=== PATIENT | female | born 1950 | race Caucasian/White ===

== ENCOUNTER 2024-07-05 10:11 | Inpatient (IN) | payer MEDICARE, OTHER ==
[~2024-07-05] VITALS: Ht 167.6 cm; Wt 50.5 kg
[2024-07-05 10:39] LABS: Basophils # (auto) 0.1 10 ^3/uL (0-0.2); Basophils % (auto) 0.7 % (0.0-2.0); Eosinophils # (auto) 0 10 ^3/uL (0-0.8); Eosinophils % (auto) 0.2 % (0.0-7.0); Hematocrit 39.1 % (36.0-46.0); Hemoglobin 13.3 g/dL (12.2-16.2); Lymphocytes # (auto) 0.8 10 ^3/uL (0.4-5.4); Lymphocytes % (auto) 7.8 % (10.0-50.0); Mean Corpuscular Hemoglobin 32.4 pg (28.0-32.0); Mean Corpuscular Hgb Conc. 34.1 g/dL (32.0-36.0); Mean Corpuscular Volume 95.1 fL (80.0-100.0); Monocytes # (auto) 1.2 10 ^3/uL (0-1.3); Monocytes % (auto) 11.6 % (0.0-12.0); Neutrophils # (auto) 8.1 10 ^3/uL (1.6-8.6); Neutrophils % (auto) 79.7 % (37.0-80.0); Nucleated Red Blood Cells % 0.1 %; Platelet Count (auto) 482 10^3/uL (140-450); Red Blood Cells 4.11 10^6/uL (4.0-5.20); Red Cell Distribution Width 13.4 % (11.8-14.3); White Blood Cell 10.1 10^3/uL (4.4-10.8)
--- NOTE | 2024-07-05 12:11 | ED.PDOC ---
History of Present Illness HPI Comments 74 y/o underweight F presents with granddaughter for c/o constipation, urine retention, and abdominal distension, today. Patient is a poor historian and reports progressively worsening symptoms for the past 5x days following initial, unprovoked onset. Patient endorses on still passing some gas flatulence. She comments, additionally, on remote event with same symptoms 12x years ago following a colonoscopy procedure then. Patient otherwise reports no further relevant or pertinent information, such as recent sick contact or any significant GI symptoms, aside from being without a medical provider for over 3x years, now. Patient denies any abdominal pain, nausea, vomiting, fever, chills, or other associated symtpoms or modifiers a this time. Chief Complaint: General Weakness Time Seen by MD: 10:10 Reviewed Notes: Nurses Notes, Medications, Allergies Allergies: Coded Allergies: NO KNOWN ALLERGIES (Unverified , 07/05/24) Information Source: Patient, Relative (GrandChild) Mode of Arrival: Ambulatory Severity: Moderate Timing: Days Duration: Since onset Prehospital treatment: None Past Medical History PAST MEDICAL HISTORY: Denies Surgical History: Denies all surgeries CLOTHING MAN History: Denies all CLOTHING MAN Hx Family History Family History: Unknown Social History Smoker: Non-Smoker Alcohol: Denies ETOH Use Drugs: Denies Drug Use Lives In: Home, Assisted Care All Other Systems: Reviewed and Negative (Comprehensive systems review obtained and negative except for what is stated in the HPI.) Physical Exam General Appearance: Moderate Distress HEENT: Normal ENT Inspection, Pharynx Normal, TMs Normal Neck: Full Range of Motion, Non-Tender, Normal, Normal Inspection Respiratory: Chest Non-Tender, Lungs Clear, No Accessory Muscle Use, No Respiratory Distress, Normal Breath Sounds Cardiovascular: No Edema, No JVD, No Murmur, No Gallop, Normal Peripheral Pulses, Tachycardia Breast Exam: Deferred Gastrointestinal: Distended Genitalia: Deferred Pelvic: Deferred Rectal: Deferred Extremities: Normal range of motion, No pedal edema Musculoskeletal : Apperance: Normal Neurologic: Alert, No Motor Deficits, No Sensory Deficits Cerebellar Function: NOT DONE Reflexes: NOT DONE Skin: Dry, Normal Color, Warm Peripheral Pulses: 3+ Radial (R), 3+ Radial (L) Lymphatic: No Adenopathy Was a procedure done? Was a procedure done?: No EKG EKG : Pulse Rate (adult): 103 [place]: Normal Cardiac Rhythm: ST Block: None Hypertrophy: None ST: Normal Differential Dx Considerations may include: constipation, UTI, viral syndrome, among others X-Ray, Labs, Meds, VS Vital Signs Date Time Temp Pulse Resp B/P (MAP) Pulse Ox O2 Delivery O2 Flow Rate FiO2 07/05/24 14:26 100 97 96 Room Air* 0 21 07/05/24 14:00 115 17 147/90 (109) 99 07/05/24 13:45 98.5 113 19 159/96 (117) 99 98.5 07/05/24 13:30 111 147/90 07/05/24 13:24 105 18 163/109 (127) 98 07/05/24 12:12 103 07/05/24 10:24 103 07/05/24 10:22 98.5 110 20 165/91 (115) 98 98.5 Lab Test 07/05/24 10:27 07/05/24 10:20 Range/Units White Blood Count 10.1 4.4-10.8 10^3/uL Red Blood Count 4.11 4.0-5.20 10^6/uL Hemoglobin 13.3 12.2-16.2 g/dL Hematocrit 39.1 36.0-46.0 % Mean Corpuscular Volume 95.1 80.0-100.0 fL Mean Corpuscular Hemoglobin 32.4 H 28.0-32.0 pg Mean Corpuscular Hemoglobin Concent 34.1 32.0-36.0 g/dL Red Cell Distribution Width 13.4 11.8-14.3 % Platelet Count 482 H 140-450 10^3/uL Mean Platelet Volume 6.8 L 6.9-10.8 fL Neutrophils (%) (Auto) 79.7 37.0-80.0 % Lymphocytes (%) (Auto) 7.8 L 10.0-50.0 % Monocytes (%) (Auto) 11.6 0.0-12.0 % Eosinophils (%) (Auto) 0.2 0.0-7.0 % Basophils (%) (Auto) 0.7 0.0-2.0 % Neutrophils # (Auto) 8.1 1.6-8.6 10 ^3/uL Lymphocytes # (Auto) 0.8 0.4-5.4 10 ^3/uL Monocytes # (Auto) 1.2 0-1.3 10 ^3/uL Eosinophils # (Auto) 0 0-0.8 10 ^3/uL Basophils # (Auto) 0.1 0-0.2 10 ^3/uL Nucleated Red Blood Cells 0.1 % Urine Color Yellow Yellow Urine Clarity Turbid H Clear Urine pH 5.5 5.0-9.0 Urine Specific [place] 1.021 1.001-1.035 Urine Protein Trace H Negative Urine Ketones Negative Negative Urine Blood 1+ H Negative /uL Urine Nitrite Negative Negative Urine Bilirubin Negative Negative Urine Urobilinogen Normal Negative mg/dL Urine Leukocyte Esterase Trace Negative /uL Urine RBC 11 0 - 4 /hpf Urine Microscopic WBC 12 H 0-5 /HPF Urine Squamous Epithelial Cells Few <5 /hpf Urine Bacteria None seen None Seen /hpf Urine Mucus Few None Seen Urine Glucose Normal Normal mg/dL POC Glucose 151 H 70-106 mg/dl Current Medications Medications (Trade) Dose Ordered Sig/Matt Route Start Time Stop Time Status Last Admin Sodium Chloride 1,000 ml @ 1,000 mls/hr Q1H ONCE IV 07/05/24 12:30 07/05/24 13:29 DC 07/05/24 12:30 [place] [id number] Ph: [phone] DIAGNOSTIC IMAGING Diagnostic Imaging Report : [id number] Signed PATIENT: TAYLER SAMAYOA ACCT: [id number] UNIT: [id number] : 1950 LOC: ER ROOM / BED: / AGE / SEX: 74 / F ADM STATUS: REG ER SERVICE 1223 ORDERING PHYSICIAN: SALIMA ORTIZ MD PROCEDURE(s): ABPL - CT AB PEL WO CON-NO ORAL OR IV REASON: herniavssbo ORDER NUMBER(s): [id number], ACCESSION NUMBER(s): [id number] CT ABDOMEN AND PELVIS WITHOUT CONTRAST CLINICAL HISTORY: herniavssbo TECHNIQUE: Multiple contiguous axial images of the abdomen and pelvis without intravenous contrast. The images were reformatted degenerate coronal and s agittal reconstructions. All CT scans at this medical facility are performed using dose modulation techniques as appropriate to a performed exam including the following:Automated exposure control was utilized; adjustment of the MA and/or KV according to p atient size; and use of iterative reconstruction technique. Radiation Dose Information: CT Dose: CTDI volume is 5.5 mGy. Dose-length product is 264.87 mGy*cm Comparison: None FINDINGS: Evaluation of the abdomen and pelvis is limited without intravenous contrast. The liver, gallbladder, pancreas, kidneys, adrenal glands, and spleen appear within normal limits. There are enlarged matted retroperitoneal lymph nodes encasing the abdominal aorta and IVC. There is no obvious free fluid or free air. There is a large cystic structure in the anterior abdomen and upper pelvis measuring approximately 11.4 x 16.1 x 20.2 cm. There is a midline ventral hernia containing intra-abdominal fat and fluid. The stomach grossly appears unremarkable. There are no dilated small or large bowel loops. The appendix is not adequately seen in the right lower quadrant abdomen. There are no obvious secondary findings of acute appendicitis. The abdominal aorta and IVC appear within normal limits. The uterus is enlarged. Bladder is not adequately seen and is likely compressed.. There is small amount of free fluid in the pelvis. Lung bases are clear. There is no acute osseous abnormality. IMPRESSION: 1. There is a large cystic structure in the anterior abdomen and upper pelvis measuring 11.4 x 16.1 x 20.2 cm. This probably represents a large ovarian cystic lesion. Surgical consultation is recommended. 2. The uterus is also enlarged. May relate to uterine mass or fibroids. 3. There are enlarged matted retroperitoneal lymph nodes encasing the abdominal aorta and IVC. HS:Y ATED BY: BALDO YAÑEZ MD DICTATED DATE/TIME: 07/05/24 1300 SIGNED BY: BALDO YAÑEZ MD SIGNED DATE/TIME: 07/05/24 1300 CC: Patient alert. Complaining of abdominal distention. Has not had a bowel movement. Vitals stable. Blood pressure elevated. She has not seen a physician in many years. WBC within normal limits. Hemoglobin within normal limits. Blood sugar elevated. Establish intravenous access. Was given pain medication. Was given Zofran. Reviewed her history. Explained to the patient. Continue cardiac monitoring. EKG reviewed does not show any acute changes. Time of 1ST Reevaluation: 10:40 Reevaluation 1ST: Unchanged Patient Education/Counseling: Diagnosis, Treatment Family Education/Counseling: Diagnosis, Treatment Additional Information Previous medical encounters reviewed: n/a The following tests were ordered, and results were reviewed by me: EKG, UA, CBC Additional Information was gathered from interviewing the following independent historians: granddaughter I reviewed and agreed with the following test results read by other providers: n/a I discussed treatment and results with medical personnel and: Patient, ted hter Departure 1 Departure Time of Disposition: 12:22 Impression: Primary Impression: Uncontrolled diabetes mellitus Qualified Codes: E13.65 - Other specified diabetes mellitus with hyperglycemia Additional Impression: Acute abdominal pain Disposition: ADMITTED INPATIENT Admit to: Med Surg Condition: Guarded Critical Care Note Critical Care Time?: No Stability Stability form required: No Heart Score Heart Score: Heart Score Response (Comments) Value History Slightly Suspicious 0 EKG Normal 0 Age >65 2 Risk Factors >3 or Hx ASHD 2 Troponin Normal limit 0 Total 4 I personally scribed for SALIMA ORTIZ MD ([email or web address]) on 07/05/24 at 12:11. Electronically submitted by Bobby Veronica ([email or web address]). I personally scribed for SALIMA ORTIZ MD ([email or web address]) on 07/05/24 at 12:12. Electronically submitted by Bobby Veronica ([email or web address]). I personally scribed for SAILMA ORTIZ MD ([email or web address]) on 07/05/24 at 15:10. E lectronically submitted by Bobby Veronica ([email or web address]). SALIMA ORTIZ MD Jul 05, 2024 12:11
[2024-07-05] MEDS: SODIUM CHLORIDE 0.9% 1,000 ML IV ONE (12:30)
--- NOTE | 2024-07-05 13:03 | DVH ---
CT ABDOMEN AND PELVIS WITHOUT CONTRAST CLINICAL HISTORY: herniavssbo TECHNIQUE: Multiple contiguous axial images of the abdomen and pelvis without intravenous contrast. T he images were reformatted degenerate coronal and sagittal reconstructions. All CT scans at this medical facility are performed using dose modulation techniques as appropriate t o a performed exam including the following:Automated exposure control was utilized; adjustment of the MA and/or KV according to patient size; and use of iterative reconstruction technique. Radiation Dose Information: CT Dose: CTDI volume is 5.5 mGy. Dose-length product is 264.87 mGy*cm Comparison: None FINDINGS: Evaluation of the abdomen and pelvis is limited without intravenous contrast. The liver, gallbladder, pancreas, kidneys, adrenal glands, and spleen appear within normal limits. There are enlarged matted retroperitoneal lymph nodes encasing the abdominal aorta and IVC. There is no obvious free fluid or free air. There is a large cystic structure in the anterior abdomen and uppe r pelvis measuring approximately 11.4 x 16.1 x 20.2 cm. There is a midline ventral hernia containing intra-abdominal fat and fluid. The stomach grossly appears unremarkable. There are no dilated small or large bowel loops. The appen alan is not adequately seen in the right lower quadrant abdomen. There are no obvious secondary findin gs of acute appendicitis. The abdominal aorta and IVC appear within normal limits. The uterus is enlarged. Bladder is not adequately seen and is likely compressed.. There is small madhu unt of free fluid in the pelvis. Lung bases are clear. There is no acute osseous abnormality. IMPRESSION: 1. There is a large cystic structure in the anterior abdomen and upper pelvis measuring 11.4 x 16.1 x 20.2 cm. This probably represents a large ovarian cystic lesion. Surgical consultation is recommend ed. 2. The uterus is also enlarged. May relate to uterine mass or fibroids. 3. There are enlarged matted retroperitoneal lymph nodes encasing the abdominal aorta and IVC. HS:Y
[2024-07-05] MEDS: LABETALOL HCL 20 MG/4 ML VL IV ONE (13:30)
[2024-07-05 14:19] LABS: Urine Bacteria None Seen /hpf (None Seen)
[2024-07-05 14:24] LABS: Urine Blood 1+ /uL (Negative); Urine Clarity Turbid (Clear); Urine Color Yellow (Yellow); Urine Mucus FEW (None Seen); Urine Protein, UAD TRACE (Negative); Urine Specific Gravity 1.021 (1.001-1.035); Urine Squamous Epithelial Cell FEW /hpf (<5); Urine Urobilinogen Normal (Negative); Urine WBC 12 /HPF (0-5); Urine pH 5.5 (5.0-9.0)
[2024-07-05 14:26] VITALS: PULSE 100; RESP 97; O2SAT 96
[2024-07-05] MEDS ORDERED: ACETAMINOPHEN 500 MG TAB or CAP PO PRN (14:45)
[2024-07-05] MEDS ORDERED: NITROGLYCERIN 0.4 MG SL TAB SL PRN (14:45)
[2024-07-05 14:47] VITALS: PULSE 94; RESP 16; O2SAT 98
--- NOTE | 2024-07-05 14:58 | DVHHP2 ---
History of Present Illness Reason for Visit: Abdominal distention History of Present Illness Patient was a 74-year-old female presenting to the emergency room with constipation in abdominal distention. Patient denies having any medical history. She reports that her abdominal distention has been getting worse with the past several days. The patient also reports having constipation. She denies having any loss of weight. Patient has CT scan of the abdomen and pelvis which shows a large cystic lesion anterior abdomen. Patient was Leiva catheter placed with some resolution of the patient's abdominal distention with 1600 mL removed. Imaging and radiology findings were discussed with the patient and granddaughter who was bedside. They were informed that given this type of mass, it was highly likely that the patient will need to be seen by specialist, gynecological oncologist, which was not available at this hospital or within the local hospitals. At this time she was requesting to be admitted to this hospital for further diagnostic testing. The current time she states that she has not seen a doctor three years, and is currently on no prescribed medications. Past Surgical History: None Family History: None Smoke: No ALCOHOL: none Drugs: None Lives: with Family Review of Systems Constitutional: No: Fever, Chills, Sweats, Weakness, Malaise, Other Eyes: No: Pain, Vision change, Conjunctivae inflammation, Eyelid inflammation, Other, Redness ENT: No: Ear pain, Ear discharge, Nose pain, Nose discharge, Nose congestion, Mouth pain, Mouth swelling, Throat pain, Throat swelling, Other Respiratory: No: Cough, Dry, Shortness of breath, SOB with excertion, Wheezing, Hemoptysis, Pleuritic Pain, Sputum, Wheezing, Other Cardiovascular: No: Chest Pain, Palpitations, Orthopnea, Paroxysmal Noc. Dyspnea, Edema, Lt Headedness, Other Gastrointestinal: Abdominal Pain, Constipation Genitourinary: No Dysuria, No Frequency, No Incontinence, No Hematuria, No Retention, No Other Musculoskeletal: No: other, neck pain, shoulder pain, arm pain, back pain, hand pain, leg pain, foot pain Skin: No: Rash, Lesions, Jaundice, Bruising, Other Neurological: No: Weakness, Numbness, Incoordination, Change in speech, Confusion, Seizures, Other Allergies: Coded Allergies: NO KNOWN ALLERGIES (Unverified , 07/05/24) Medications Current Medications Medications Dose Ordered Sig/Matt Route Start Time Stop Time Status Last Admin Dose Admin Nitroglycerin 0.4 mg Q5MINP PRN SL 07/05/24 14:45 UNV Morphine Sulfate 2 mg Q30M PRN IV 07/05/24 14:45 UNV Morphine Sulfate 1 mg Q4HPRN PRN IV 07/05/24 14:45 UNV Acetaminophen/ Hydrocodone Bitart 1 tab Q6HPRN PRN PO 07/05/24 14:45 UNV Acetaminophen 500 mg Q8HP PRN PO 07/05/24 14:45 UNV Ondansetron HCl 4 mg Q6HP PRN IV 07/05/24 14:45 UNV Docusate Sodium 100 mg BID PO 07/05/24 22:00 UNV Lactated Ringer's 1,000 ml @ 75 mls/hr [id number] IV 07/05/24 14:45 UNV Exam Vital Signs Vital Signs Date Time Temp Pulse Resp B/P (MAP) Pulse Ox O2 Delivery O2 Flow Rate FiO2 07/05/24 14:26 100 97 96 Room Air* 0 21 07/05/24 14:00 147/90 (109) 07/05/24 13:45 98.5 98.5 General Appearance: Alert, Oriented X3, Cooperative, mild distress HEENT: Atraumatic, PERRLA Respiratory: Clear to auscultation, Normal air movement Cardiovascular: Normal S1, Normal S2, Other (Sinus tachycardia) Abdominal: Normal bowel sounds, Soft, No tenderness, No hepatospenomegaly Extremities: No clubbing, No cyanosis Neuro: Normal gait, Normal speech Psych/Mental Status: Mental status NL, Mood NL Labs/Xrays Labs Test 07/05/24 10:27 07/05/24 10:20 Range/Units White Blood Count 10.1 4.4-10.8 10^3/uL Red Blood Count 4.11 4.0-5.20 10^6/uL Hemoglobin 13.3 12.2-16.2 g/dL Hematocrit 39.1 36.0-46.0 % Mean Corpuscular Volume 95.1 80.0-100.0 fL Mean Corpuscular Hemoglobin 32.4 H 28.0-32.0 pg Mean Corpuscular Hemoglobin Concent 34.1 32.0-36.0 g/dL Red Cell Distribution Width 13.4 11.8-14.3 % Platelet Count 482 H 140-450 10^3/uL Mean Platelet Volume 6.8 L 6.9-10.8 fL Neutrophils (%) (Auto) 79.7 37.0-80.0 % Lymphocytes (%) (Auto) 7.8 L 10.0-50.0 % Monocytes (%) (Auto) 11.6 0.0-12.0 % Eosinophils (%) (Auto) 0.2 0.0-7.0 % Basophils (%) (Auto) 0.7 0.0-2.0 % Neutrophils # (Auto) 8.1 1.6-8.6 10 ^3/uL Lymphocytes # (Auto) 0.8 0.4-5.4 10 ^3/uL Monocytes # (Auto) 1.2 0-1.3 10 ^3/uL Eosinophils # (Auto) 0 0-0.8 10 ^3/uL Basophils # (Auto) 0.1 0-0.2 10 ^3/uL Nucleated Red Blood Cells 0.1 % Urine Color Yellow Yellow Urine Clarity Turbid H Clear Urine pH 5.5 5.0-9.0 Urine Specific [place] 1.021 1.001-1.035 Urine Protein Trace H Negative Urine Ketones Negative Negative Urine Blood 1+ H Negative /uL Urine Nitrite Negative Negative Urine Bilirubin Negative Negative Urine Urobilinogen Normal Negative mg/dL Urine Leukocyte Esterase Trace Negative /uL Urine RBC 11 0 - 4 /hpf Urine Microscopic WBC 12 H 0-5 /HPF Urine Squamous Epithelial Cells Few <5 /hpf Urine Bacteria None seen None Seen /hpf Urine Mucus Few None Seen Urine Glucose Normal Normal mg/dL POC Glucose 151 H 70-106 mg/dl Assessment/Plan Assessment/Plan Impression: -large abdominal mass -constipation -accelerated hypertension -urinary retention Plan: -admit to Medical/Surgical unit -MRI of the abdomen and pelvis -stool softeners -CEA, CA 125 -antihypertensives -continue with Leiva catheter -repeat labs in a.m. -pain management Total time spent with patient discussing and formulating plan of care: 35 minutes. This medical document was created using an electronic medical record system with [facility] system. Although this document has been carefully reviewed, there may still be some phonetic and typographical errors. These areas are purely typographical due to imperfections of the software programs, and do not reflect any compromise in the patient's medical care. Plan discussed with: Patient, Other (RN) My Orders Orders - ABRAM JORDAN NP Procedure Category Date Status Time Comprehensive LAB 07/05/24 Logged Metabolic Panel 14:45 Ca 125 (Serial) LAB 07/05/24 Logged 14:45 Carcinoembryonic LAB 07/05/24 Logged Antigen 14:45 * Director Of Market Analysis CONS 07/05/24 Transmitted Consult Admit ADMIT 07/05/24 Transmitted 14:45 Nitroglycerin PHA 07/05/24 Logged Sublingual (Ntrostat 14:45 Morphine Sulfate PHA 07/05/24 Logged Injection 14:45 Stat Ekg For Chest LONG 07/05/24 In Process Pain 14:45 Notify Md Of Changes LONG 07/05/24 In Process From Base 14:45 Shop Worker For LONG 07/05/24 In Process 24 Hours 14:45 Emergency Dysrhythmia LONG 07/05/24 In Process Protocol 14:45 Rhythm Strips Once LONG 07/05/24 In Process Every Shift 14:45 Oxygen By Nasal RT 07/05/24 Transmitted Cannula 14:45 Mri Abd & Plevis W/Wo MRI 07/05/24 Logged Cont 14:45 Lactate Dehydrogenase LAB 07/05/24 Logged 14:45 Thyroid Stimulating LAB 07/05/24 Logged Hormone 14:45 Morphine Sulfate PHA 07/05/24 Logged Injection 14:45 Hydrocodone-Acet PHA 07/05/24 Logged 5/325mg Tab ([place]ale 14:45 Acetaminophen Tab Or PHA 07/05/24 Logged Cap (Tylenol Tablet 14:45 Ondansetron Hcl PHA 07/05/24 Logged (Zofran) 14:45 Docusate Sodium PHA 07/05/24 Logged Capsule (Colace 22:00 Basic Metabolic Panel LAB 07/06/24 Verified 04:00 Complete Blood Count LAB 07/06/24 Verified 04:00 Lactated Ringer's PHA 07/05/24 Logged 14:45 Regular Diet DIET 07/05/24 Transmitted Dinner Metoprolol Tartrate PHA 07/05/24 Transmitted Tablet (Lopressor Ta 22:00 Date of Service: Jul 05, 2024 Billing Provider: ABRAM JORDAN NP Common Visit Codes: [id number] INP/OBS CARE (HIGH) ABRAM JORDAN NP Jul 05, 2024 14:58
[2024-07-05] MEDS: LACTATED RINGER'S 1,000 ML IV SCH (15:45)
[2024-07-05] MEDS: ONDANSETRON HCL 4 MG/2 ML VIAL IV PRN (16:01)
[2024-07-05] MEDS: MORPHINE SULFATE INJ 2 MG/ml SYRG IV PRN ×2 (16:02→21:52)
[2024-07-05 16:15] LABS: Alanine Aminotransferase 14 U/L (7-40); Albumin 4.2 g/dL (3.2-4.8); Alkaline Phosphatase 69 U/L (46-116); Anion Gap 9 (5-15); Bilirubin, Total 0.4 mg/dL (0.2-1.0); Calcium 9.9 mg/dL (8.7-10.4); Carbon Dioxide 27 mmol/L (20-31); Chloride 102 mmol/L (98-107); Potassium 3.7 mmol/L (3.5-5.1); Sodium 138 mmol/L (136-145); Total Protein 7.3 g/dL (5.7-8.2)
[2024-07-05 16:17] LABS: Aspartate Aminotransferase 127 U/L (13-40); Blood Urea Nitrogen 27 mg/dL (9-23); Glucose 136 mg/dL (74-106)
[2024-07-05 18:29] LABS: Thyroid Stimulating Hormone 2.79 uIU/mL (0.55-4.78)
[2024-07-05 19:45] VITALS: PULSE 71; RESP 16; O2SAT 98
[2024-07-05] MEDS: HYDROcodone-ACET 5/325MG TAB PO PRN (21:51)
[2024-07-05] MEDS: DOCUSATE SOD 100 MG CAP PO SCH (22:19)
[2024-07-05] MEDS: METOPROLOL TARTRATE 25 MG TAB PO SCH (22:19)
[2024-07-05 22:30] VITALS: BP 156/87; PULSE 80; RESP 17; TEMP 97.9; O2SAT 93
[2024-07-05 22:49] VITALS: BP 156/87; PULSE 78; PULSE 80; RESP 17; TEMP 97.9; O2SAT 93; O2SAT 94
[2024-07-06 08:00] VITALS: PULSE 93; RESP 17; O2SAT 93
[2024-07-06 08:24] LABS: Basophils # (auto) 0.1 10 ^3/uL (0-0.2); Basophils % (auto) 0.6 % (0.0-2.0); Eosinophils # (auto) 0.1 10 ^3/uL (0-0.8); Eosinophils % (auto) 0.7 % (0.0-7.0); Hematocrit 37.5 % (36.0-46.0); Hemoglobin 12.6 g/dL (12.2-16.2); Lymphocytes # (auto) 0.7 10 ^3/uL (0.4-5.4); Lymphocytes % (auto) 5.9 % (10.0-50.0); Mean Corpuscular Hemoglobin 31.8 pg (28.0-32.0); Mean Corpuscular Hgb Conc. 33.6 g/dL (32.0-36.0); Mean Corpuscular Volume 94.6 fL (80.0-100.0); Monocytes # (auto) 1.1 10 ^3/uL (0-1.3); Monocytes % (auto) 9.6 % (0.0-12.0); Neutrophils # (auto) 9.4 10 ^3/uL (1.6-8.6); Neutrophils % (auto) 83.2 % (37.0-80.0); Platelet Count (auto) 360 10^3/uL (140-450); Red Blood Cells 3.96 10^6/uL (4.0-5.20); Red Cell Distribution Width 13.3 % (11.8-14.3); White Blood Cell 11.3 10^3/uL (4.4-10.8)
[2024-07-06 08:40] LABS: Chloride 101 mmol/L (98-107); Potassium 3.9 mmol/L (3.5-5.1); Sodium 136 mmol/L (136-145)
[2024-07-06 08:41] LABS: Anion Gap 9 (5-15); Calcium 9.6 mg/dL (8.7-10.4); Carbon Dioxide 26 mmol/L (20-31)
[2024-07-06 08:42] VITALS: BP 165/90; PULSE 93; RESP 17; TEMP 98.2; O2SAT 95
[2024-07-06 08:46] LABS: Glucose 99 mg/dL (74-106)
[2024-07-06 09:03] LABS: Blood Urea Nitrogen 27 mg/dL (9-23)
[2024-07-06 12:06] LABS: Hepatitis B Surface Antigen Negative (Negative); Hepatitis C Antibody Negative (Negative)
[2024-07-06 13:00] VITALS: BP 133/80; PULSE 101; RESP 17; TEMP 98.2; O2SAT 98
--- NOTE | 2024-07-06 14:25 | DVH ---
Exam: MRI PELVIS WO CONTRAST History: CYSTIC MASS Comparison: CT dated 07/05/2024 Technique: Multisequence multiplanar MRI images of the pelvis were performed. Findings: Bladder: Decompressed with Leiva catheter. Visualized bowel: Visualized portion of the bowel is grossly unremarkable without evidence for obstru ction. Pelvic organs: Endometrium measures 1.3 cm. Possible endometrial polyp measures 1.7 cm. Uterus is het erogeneous and enlarged measuring 14.4 cm. Lymphadenopathy: Retroperitoneal adenopathy. For example, left para-aortic lymph node measures 3.8 c m. Vasculature: There is normal enhancement of the pelvic vasculature. Ascites: Absent. Musculoskeletal: The bone marrow signal is preserved. IMPRESSION: Extensive pelvic adenopathy. Abnormal heterogeneous and enlarged appearance to the uterus. Endometrium is thickened measuring 1.3 cm with possible endometrial polyp measuring 1.7 cm. Findings are suspicious for neoplasm. Supply Chain Associate consultation advised.
--- NOTE | 2024-07-06 15:25 | ECG ---
[facility] Test Date: 2024-07-05 Test Time: 10:24:08 Pat Name: TAYLER ALICIA Department: ED Room: 0293T Gender: F Machine Operator General: BARBARA : 1950 Requested By: SALIMA ORTIZ Order Number: [id number] Reading MD: Olivier Marques Measurements Intervals [place] Rate: 103 P: 91 [place]: 115 QRS: -8 QRSD: 80 T: 84 QT: 332 QTc: 435 Interpretive Statements Sinus tachycardia Nonspecific T abnormalities, lateral leads Baseline wander in lead(s) V3 Electronically Signed On 07-11-2024 20:37:31 PDT by Olivier Marques Please click the below link to view image of tracing.
--- NOTE | 2024-07-06 16:14 | DVHPN2 ---
Subjective Patient denies any symptoms. Reviewed: Care Plan, H&P, Labs, Medications, Previous Orders, Radiology Changes from previous H/P or p: No Changes General: Per HPI Eyes: No Pain, No Vision change, No Conjunctivae inflammation, No Eyelid inflammation, No Other, No Redness ENT: No Ear pain, No Ear discharge, No Nose pain, No Nose discharge, No Nose congestion, No Mouth pain, No Mouth swelling, No Throat pain, No Throat swelling, No Other Cardiovascular: No Chest Pain, No Palpitations, No Orthopnea, No Paroxysmal Noc. Dyspnea, No Edema, No Lt Headedness, No Other Respiratory: No Cough, No Dry, No Shortness of breath, No SOB with excertion, No Wheezing, No Hemoptysis, No Pleuritic Pain, No Sputum, No Other Gastrointestinal: Abdominal Pain, Constipation Genitourinary: No Dysuria, No Frequency, No Incontinence, No Hematuria, No Retention, No Other Musculoskeletal: No other, No neck pain, No shoulder pain, No arm pain, No back pain, No hand pain, No leg pain, No foot pain Skin: No Rash, No Lesions, No Jaundice, No Bruising, No Other Objective Vitals Vital Signs Date Time Temp Pulse Resp B/P (MAP) Pulse Ox O2 Delivery O2 Flow Rate FiO2 07/06/24 13:00 98.2 101 17 133/80 (97) 98 98.2 07/06/24 08:00 Room Air* 0 21 Intake/Output Intake and Output 07/06/24 07:00 Intake Total 1225 ml Output Total 2150 ml Balance -925 ml Intake Oral 1000 ml IV Total 225 ml Output Urine Total 2150 ml General Appearance: Alert, Oriented X3, Cooperative, No acute distress HEENT: Atraumatic, PERRLA Cardiovascular: Normal S1, Normal S2 Abdomen: Normal bowel sounds, Soft, No tenderness, No hepatospenomegaly, Other (Pelvic mass) Rectal: Deferred Musculoskeletal: Normal sensory function, Normal motor function Skin: Dry, Intact, Warm Psych/Mental Status: Mental status NL, Mood NL Medications Current Medications Medications Dose Ordered Sig/Matt Route Start Time Stop Time Status Last Admin Dose Admin Nitroglycerin 0.4 mg Q5MINP PRN SL 07/05/24 14:45 Morphine Sulfate 2 mg Q30M PRN IV 07/05/24 14:45 07/05/24 21:52 2 MG Morphine Sulfate 1 mg Q4HPRN PRN IV 07/05/24 14:45 07/05/24 16:02 1 MG Acetaminophen/ Hydrocodone Bitart 1 tab Q6HPRN PRN PO 07/05/24 14:45 07/06/24 15:16 1 TAB Acetaminophen 500 mg Q8HP PRN PO 07/05/24 14:45 Ondansetron HCl 4 mg Q6HP PRN IV 07/05/24 14:45 07/05/24 16:01 4 MG Docusate Sodium 100 mg BID PO 07/05/24 22:00 07/06/24 10:19 100 MG Metoprolol Tartrate 25 mg BID PO 07/05/24 22:00 07/06/24 10:19 25 MG Ceftriaxone Sodium 50 ml @ 100 mls/hr DAILY@09 IV 07/06/24 16:00 UNV Metronidazole 100 ml @ 100 mls/hr Q8HR IV 07/06/24 22:00 UNV Laboratory Results Laboratory Tests 07/06/24 07:15 Chemistry Test 07/06/24 07:15 Calcium Level 9.6 mg/dL (8.7-10.4) Urinalysis Test 07/05/24 10:20 Urine Color Yellow (Yellow) Urine Clarity Turbid (Clear) H Urine pH 5.5 (5.0-9.0) Urine Specific [place] 1.021 (1.001-1.035) Urine Protein Trace (Negative) H Urine Ketones Negative (Negative) Urine Blood 1+ /uL (Negative) H Urine Nitrite Negative (Negative) Urine Bilirubin Negative (Negative) Urine Urobilinogen Normal mg/dL (Negative) Urine Leukocyte Esterase Trace /uL (Negative) Urine RBC 11 /hpf (0 - 4) Urine Microscopic WBC 12 /HPF (0-5) H Urine Squamous Epithelial Cells Few /hpf (<5) Urine Bacteria None seen /hpf (None Seen) Urine Mucus Few (None Seen) Urine Glucose Normal mg/dL (Normal) Labs and/or images reviewed: Labs reviewed by me, Image(s) reviewed by me Assessment/Plan Assessment/Plan Impression: -large abdominal mass -constipation -accelerated hypertension -urinary retention Plan: -events: MRI of the pelvis performed. CEA 125 positive at 112. Discussion made with the family as well as patient. We will get Ob consultation, as well as place order for transfer to higher level of care for Cad Librarian/Onc. Patient with worsening renal function. Nephrology consultation will be placed. -start IV antibiotic therapy with Rocephin and Flagyl -nephrology consultation -MRI of the abdomen and pelvis : Reviewed -stool softeners -CEA, CA 125 -antihypertensives -continue with Leiva catheter -repeat labs in a.m. -social service consultation for transfer to higher level of care. Total time spent with patient discussing and formulating plan of care: 35 minutes. This medical document was created using an electronic medical record system with [employer] dictation system. Although this document has been carefully reviewed, there may still be some phonetic and typographical errors. These areas are purely typographical due to imperfections of the software programs, and do not reflect any compromise in the patient's medical care. Plan discussed with: Patient, Other (RN) My Orders Orders - ABRAM JORDAN NP Procedure Category Date Status Time * Horseback Riding Instructor CONS 07/06/24 Transmitted Consult Ceftriaxone 1gm/50ml PHA 07/06/24 Logged D5w (Rocephin) 16:00 Metronidazole PHA 07/06/24 Logged 500mg/100ml (Flagyl 22:00 * Date Pitter Consultation CONS 07/06/24 Transmitted 15:56 *[facility]. [facility] CONS 07/06/24 Transmitted -[place] 15:56 Blood Culture ARLIN 07/06/24 Logged 15:56 Urine Bacterial ARLIN 07/06/24 Logged Culture 15:56 Basic Metabolic Panel LAB 07/07/24 Verified 04:00 Complete Blood Count LAB 07/07/24 Verified 04:00 Date of Service: Jul 06, 2024 Billing Provider: ABRAM JORDAN NP Common Visit Codes: [id number] INP/OBS CARE(HIGH) ABRAM JORDAN NP Jul 06, 2024 16:14
[2024-07-06 17:00] VITALS: BP 140/79; PULSE 89; RESP 17; TEMP 97.9; O2SAT 96
[2024-07-06] MEDS: cefTRIAXone 1GM/50ML D5W 50 ML IV SCH (17:03)
--- NOTE | 2024-07-06 18:25 | DVHINCON2 ---
Date of service: Jul 06, 2024 Referring Physician Sushil Gamez, nurse practitioner Reason for Consultation Acute kidney injury History of Present Illness Patient is a 74-year-old female with no known past medical history is admitted for constipation and abdominal distention. On admission patient found to have elevated BUN and creatinine nephrology is consulted Allergies: Coded Allergies: NO KNOWN ALLERGIES (Unverified , 07/05/24) Current Medications Current Medications Medications (Trade) Dose Ordered Sig/Matt Route PRN Reason Start Time Stop Time Status Last Admin Ceftriaxone Sodium 50 ml @ 100 mls/hr DAILY@09 IV 07/06/24 16:00 07/07/24 09:34 Metronidazole 100 ml @ 100 mls/hr Q8HR IV 07/06/24 22:00 07/07/24 05:25 Family History: FH: breast cancer G8 MOTHER FH: emphysema G8 FATHER FH: lung cancer G8 MOTHER Review of Systems All 12 item review of systems reviewed with the patient nonsignificant except what is mentioned in the history of present illness H&P Exam Vital Signs/I&O Vital Sign Date Time Temp Pulse Resp B/P (MAP) Pulse Ox O2 Delivery O2 Flow Rate FiO2 07/07/24 09:36 20 164/82 07/07/24 09:36 20 07/07/24 08:47 98.4 92 98.4 07/07/24 08:00 Room Air* 0 21 Intake and Output 07/06/24 07/07/24 19:00 07:00 Intake Total 880 ml 1010 ml Output Total 250 ml 200 ml Balance 630 ml 810 ml Intake Oral 830 ml 910 ml IV Total 50 ml 100 ml Output Urine Total 250 ml 200 ml Physical Exam Patient is awake alert Lungs clear to auscultation Cardiac exam regular rate and rhythm GI soft nontender Leiva catheter Extremities no clubbing cyanosis or edema Neuro nonfocal Labs/Diagnostic Data Labs/Diagnostic Data Laboratory Tests Test 07/07/24 07:26 07/07/24 04:52 07/06/24 19:07 07/06/24 07:15 Range/Units White Blood Count 20.2 #H 11.3 H 4.4-10.8 10^3/uL Red Blood Count 3.78 L 3.96 L 4.0-5.20 10^6/uL Hemoglobin 12.0 L 12.6 12.2-16.2 g/dL Hematocrit 35.7 L 37.5 36.0-46.0 % Mean Corpuscular Volume 94.4 94.6 80.0-100.0 fL Mean Corpuscular Hemoglobin 31.7 31.8 28.0-32.0 pg Mean Corpuscular Hemoglobin Concent 33.5 33.6 32.0-36.0 g/dL Red Cell Distribution Width 13.2 13.3 11.8-14.3 % Platelet Count 287 360 140-450 10^3/uL Mean Platelet Volume 6.9 7.2 6.9-10.8 fL Neutrophils (%) (Auto) 91.2 H 83.2 H 37.0-80.0 % Lymphocytes (%) (Auto) 2.3 L 5.9 L 10.0-50.0 % Monocytes (%) (Auto) 6.1 9.6 0.0-12.0 % Eosinophils (%) (Auto) 0.1 0.7 0.0-7.0 % Basophils (%) (Auto) 0.3 0.6 0.0-2.0 % Neutrophils # (Auto) 18.4 H 9.4 H 1.6-8.6 10 ^3/uL Lymphocytes # (Auto) 0.5 0.7 0.4-5.4 10 ^3/uL Monocytes # (Auto) 1.2 1.1 0-1.3 10 ^3/uL Eosinophils # (Auto) 0 0.1 0-0.8 10 ^3/uL Basophils # (Auto) 0.1 0.1 0-0.2 10 ^3/uL Nucleated Red Blood Cells 0.0 0.0 % Sodium Level 131 #L 136 136-145 mmol/L Potassium Level 4.6 3.9 3.5-5.1 mmol/L Chloride Level 98 101 98-107 mmol/L Carbon Dioxide Level 23 26 20-31 mmol/L Anion Gap 10 9 5-15 Blood Urea Nitrogen 35 H 27 H 9-23 mg/dL Creatinine 2.97 #H 1.80 H 0.550-1.02 mg/dL Glomerular Filtration Rate Calc 16 30 >90 mL/min BUN/Creatinine Ratio 11.8 15.0 10.0-20.0 Serum Glucose 122 H 99 74-106 mg/dL Calcium Level 9.4 9.6 8.7-10.4 mg/dL Urine Color Light-orange Yellow Urine Clarity Turbid H Clear Urine pH 6.5 5.0-9.0 Urine Specific [place] 1.017 1.001-1.035 Urine Protein 3+ H Negative Urine Ketones Negative Negative Urine Blood 3+ H Negative /uL Urine Nitrite Negative Negative Urine Bilirubin Negative Negative Urine Urobilinogen Normal Negative mg/dL Urine Leukocyte Esterase 2+ Negative /uL Urine RBC 616 0 - 4 /hpf Urine Microscopic WBC 159 H 0-5 /HPF Urine Squamous Epithelial Cells Few <5 /hpf Urine Bacteria Few H None Seen /hpf Urine Mucus Few None Seen Urine Yeast (Budding) Occasional None Seen /hpf Urine Creatinine 98.07 30.0-125.0 mg/dL Urine Protein/Creatinine Ratio 8.40 Urine Sodium 55 40-220 mmol/L Urine Glucose 1+ H Normal mg/dL Urine Total Protein 824.0 H 1-14 mg/dL Vitamin D 25-Hydroxy 19.2 L 30.0-100 ng/mL Phosphorus Level 3.9 2.4-5.1 mg/dL Magnesium Level 2.1 1.6-2.6 mg/dL Parathyroid Hormone (Intact) 27.6 18.4-80.1 pg/mL Hepatitis B Surface Antigen Negative Negative Hepatitis C Antibody Negative Negative Test 07/05/24 15:37 07/05/24 10:27 07/05/24 10:20 Range/Units Sodium Level 138 136-145 mmol/L Potassium Level 3.7 3.5-5.1 mmol/L Chloride Level 102 98-107 mmol/L Carbon Dioxide Level 27 20-31 mmol/L Anion Gap 9 5-15 Blood Urea Nitrogen 27 H 9-23 mg/dL Creatinine 1.50 H 0.550-1.02 mg/dL Glomerular Filtration Rate Calc 37 >90 mL/min BUN/Creatinine Ratio 18.0 10.0-20.0 Serum Glucose 136 H 74-106 mg/dL Calcium Level 9.9 8.7-10.4 mg/dL Total Bilirubin 0.4 0.2-1.0 mg/dL Aspartate Amino Transferase (AST) 127 H 13-40 U/L Alanine Aminotransferase (ALT) 14 7-40 U/L Alkaline Phosphatase 69 46-116 U/L Lactate Dehydrogenase 3084 H 120-246 U/L Total Protein 7.3 5.7-8.2 g/dL Albumin 4.2 3.2-4.8 g/dL Carcinoembryonic Antigen 1.16 <=5.0 ng/mL CA 125 Antigen 112.0 H 0.0-38.1 U/mL Thyroid Stimulating Hormone (TSH) 2.79 0.55-4.78 uIU/mL White Blood Count 10.1 4.4-10.8 10^3/uL Red Blood Count 4.11 4.0-5.20 10^6/uL Hemoglobin 13.3 12.2-16.2 g/dL Hematocrit 39.1 36.0-46.0 % Mean Corpuscular Volume 95.1 80.0-100.0 fL Mean Corpuscular Hemoglobin 32.4 H 28.0-32.0 pg Mean Corpuscular Hemoglobin Concent 34.1 32.0-36.0 g/dL Red Cell Distribution Width 13.4 11.8-14.3 % Platelet Count 482 H 140-450 10^3/uL Mean Platelet Volume 6.8 L 6.9-10.8 fL Neutrophils (%) (Auto) 79.7 37.0-80.0 % Lymphocytes (%) (Auto) 7.8 L 10.0-50.0 % Monocytes (%) (Auto) 11.6 0.0-12.0 % Eosinophils (%) (Auto) 0.2 0.0-7.0 % Basophils (%) (Auto) 0.7 0.0-2.0 % Neutrophils # (Auto) 8.1 1.6-8.6 10 ^3/uL Lymphocytes # (Auto) 0.8 0.4-5.4 10 ^3/uL Monocytes # (Auto) 1.2 0-1.3 10 ^3/uL Eosinophils # (Auto) 0 0-0.8 10 ^3/uL Basophils # (Auto) 0.1 0-0.2 10 ^3/uL Nucleated Red Blood Cells 0.1 % Urine Color Yellow Yellow Urine Clarity Turbid H Clear Urine pH 5.5 5.0-9.0 Urine Specific [place] 1.021 1.001-1.035 Urine Protein Trace H Negative Urine Ketones Negative Negative Urine Blood 1+ H Negative /uL Urine Nitrite Negative Negative Urine Bilirubin Negative Negative Urine Urobilinogen Normal Negative mg/dL Urine Leukocyte Esterase Trace Negative /uL Urine RBC 11 0 - 4 /hpf Urine Microscopic WBC 12 H 0-5 /HPF Urine Squamous Epithelial Cells Few <5 /hpf Urine Bacteria None seen None Seen /hpf Urine Mucus Few None Seen Urine Glucose Normal Normal mg/dL POC Glucose 151 H 70-106 mg/dl Assessment Acute kidney injury superimposed Chronic Kidney Disease secondary hemodynamic mediated Urinary retention Ovarian cancer Constipation Hypertensin Recommendations Closely monitor fluid and electrolytes Avoid nephrotoxic medications Leiva catheter Strict I&O I agree with IV fluid hydration BP control Laxatives Plaster Foreman consult We will continue to follow Patient seen and examined by myself. I discussed my plan of care with the patient and the primary nurse at the bedside I would like to thank Sushil for the consult, will follow Plan discussed with: Patient GLENN VIDAL MD Jul 06, 2024 18:25
--- NOTE | 2024-07-06 19:45 | DVH ---
EXAM: US KIDNEY INDICATION: edward TECHNIQUE: Multiple real-time sonographic images of the kidneys and bladder were obtained. COMPARISON: None Findings: Right kidney measures 11.1 cm with normal contours, echotexture, and cortical thickness. Mild hydrone phrosis. No evidence of calculi, cystic or solid lesions. Left kidney measures 11.0 cm with normal contours, echotexture, and cortical thickness. Mild hydronep hrosis. No evidence of calculi, cystic or solid lesions. Urinary bladder is decompressed via Leiva catheter. Heterogeneous uterus. Impression: 1. Mild bilateral hydronephrosis. 2. Urinary bladder is decompressed via Leiva catheter. 3. Heterogeneous uterus.
[2024-07-06 20:00] VITALS: PULSE 91; RESP 18; O2SAT 92
[2024-07-06 20:30] LABS: Magnesium 2.1 mg/dL (1.6-2.6)
[2024-07-06 20:31] LABS: Phosphorus 3.9 mg/dL (2.4-5.1)
[2024-07-06 21:00] VITALS: BP 159/91; PULSE 91; RESP 18; TEMP 98.1; O2SAT 92
[2024-07-06] MEDS: metroNIDAZOLE 500MG/100ML 100 ML IV SCH (21:56)
[2024-07-07] VITALS (7 sets, daily range): BP systolic 145–164; BP diastolic 75–87; PULSE 88–111; RESP 17–20; TEMP 97.8–98.4; O2SAT 90–96
[2024-07-07 05:19] LABS: Urine Bacteria FEW /hpf (None Seen); Urine Blood 3+ /uL (Negative); Urine Budding Yeast OCCASIONAL /hpf (None Seen); Urine Clarity Turbid (Clear); Urine Color Light-Orange (Yellow); Urine Mucus FEW (None Seen); Urine Protein, UAD 3+ (Negative); Urine Specific Gravity 1.017 (1.001-1.035); Urine Squamous Epithelial Cell FEW /hpf (<5); Urine Urobilinogen Normal (Negative); Urine WBC 159 /HPF (0-5); Urine pH 6.5 (5.0-9.0)
[2024-07-07 05:21] LABS: Creatinine, Urine 96.95 mg/dL (30.0-125.0); Creatinine, Urine 98.07 mg/dL (30.0-125.0)
[2024-07-07 05:23] LABS: Urine Protein/Creatinine Ratio 8.4
[2024-07-07 07:56] LABS: Basophils # (auto) 0.1 10 ^3/uL (0-0.2); Basophils % (auto) 0.3 % (0.0-2.0); Eosinophils # (auto) 0 10 ^3/uL (0-0.8); Eosinophils % (auto) 0.1 % (0.0-7.0); Hematocrit 35.7 % (36.0-46.0); Lymphocytes # (auto) 0.5 10 ^3/uL (0.4-5.4); Lymphocytes % (auto) 2.3 % (10.0-50.0); Mean Corpuscular Hemoglobin 31.7 pg (28.0-32.0); Mean Corpuscular Hgb Conc. 33.5 g/dL (32.0-36.0); Mean Corpuscular Volume 94.4 fL (80.0-100.0); Monocytes # (auto) 1.2 10 ^3/uL (0-1.3); Monocytes % (auto) 6.1 % (0.0-12.0); Neutrophils # (auto) 18.4 10 ^3/uL (1.6-8.6); Neutrophils % (auto) 91.2 % (37.0-80.0); Platelet Count (auto) 287 10^3/uL (140-450); Red Blood Cells 3.78 10^6/uL (4.0-5.20); Red Cell Distribution Width 13.2 % (11.8-14.3); White Blood Cell 20.2 10^3/uL (4.4-10.8)
[2024-07-07 08:14] LABS: Anion Gap 10 (5-15); Calcium 9.4 mg/dL (8.7-10.4); Carbon Dioxide 23 mmol/L (20-31); Chloride 98 mmol/L (98-107); Potassium 4.6 mmol/L (3.5-5.1)
[2024-07-07 08:20] LABS: BUN/Creatinine Ratio 11.8 (10.0-20.0)
[2024-07-07 08:22] LABS: Blood Urea Nitrogen 35 mg/dL (9-23); Glucose 122 mg/dL (74-106); Sodium 131 mmol/L (136-145)
--- NOTE | 2024-07-07 08:44 | DVHINCON2 ---
Date of service: Jul 07, 2024 Referring Physician Hospitalist Reason for Consultation 74-year-old female x3; Pelvic abdominal mass There are enlarged matted retroperitoneal lymph nodes encasing the abdominal aorta and IVC. There is no obvious free fluid or free air. There is a large cystic structure in the anterior abdomen and upper pelvis measuring approximately 11.4 x 16.1 x 20.2 cm. There is a midline ventral hernia containing intra-abdominal fat and fluid. Past Medical History Hypertension of which she has only had 3 doses of her medication Past Surgical History No significant abdominopelvic surgery Family History Noncontributory Patient Family History: FH: breast cancer G8 MOTHER FH: emphysema G8 FATHER FH: lung cancer G8 MOTHER Allergies: Coded Allergies: NO KNOWN ALLERGIES (Unverified , 07/05/24) Current Medications Current Medications Medications (Trade) Dose Ordered Sig/Matt Route PRN Reason Start Time Stop Time Status Last Admin Ceftriaxone Sodium 50 ml @ 100 mls/hr DAILY@09 IV 07/06/24 16:00 07/06/24 17:03 Metronidazole 100 ml @ 100 mls/hr Q8HR IV 07/06/24 22:00 07/07/24 05:25 Review of Systems Constitutional: no fever, chill, weight loss HEENT: no eye pain, no hearing loss, no oral lesion, no scleral icterus Heart: no chest pain, no chest pressure Lung: no cough, no dyspnea with exertion Abdomen: see HPI : no pain with urination, normal appearing urine Musculoskeletal: no joint pain, no muscle pain Neurological: no seizure, no loss of sensation, no weakness in extremities Pysch: no depression, no anxiety Derm: no rash, no jaundice Vital Signs Vital Signs Date Time Temp Pulse Resp B/P (MAP) Pulse Ox O2 Delivery O2 Flow Rate FiO2 07/07/24 08:00 111 17 93 Room Air* 0 21 07/07/24 05:00 98.0 156/82 (106) 98.0 Physical Exam SKIN: Dry skin she looks somewhat emaciated poor nutritional status HEENT: Alert awake oriented x3 NECK: Supple normal CARDIAC: Deferred to hospitalist PULMONARY: Deferred to hospitalist ABDOMEN: Patient has a ventral hernia 4 cm cephalad to the umbilicus 4 x 4 cm nontender no rebound. Pelvic deferred to follow up post ultrasound and CA 125 CEA MUSCULOSKELETAL: Resting comfortably in bed does not appear in any distress extremities appear normal no significant edema NEURO: Patient aware of her surroundings fact that she is in [facility] why she is here date president Labs/Diagnostic Data Labs Test 07/07/24 07:26 07/07/24 04:52 07/06/24 19:07 07/06/24 07:15 Range/Units White Blood Count 20.2 #H 4.4-10.8 10^3/uL Red Blood Count 3.78 L 4.0-5.20 10^6/uL Hemoglobin 12.0 L 12.2-16.2 g/dL Hematocrit 35.7 L 36.0-46.0 % Mean Corpuscular Volume 94.4 80.0-100.0 fL Mean Corpuscular Hemoglobin 31.7 28.0-32.0 pg Mean Corpuscular Hemoglobin Concent 33.5 32.0-36.0 g/dL Red Cell Distribution Width 13.2 11.8-14.3 % Platelet Count 287 140-450 10^3/uL Mean Platelet Volume 6.9 6.9-10.8 fL Neutrophils (%) (Auto) 91.2 H 37.0-80.0 % Lymphocytes (%) (Auto) 2.3 L 10.0-50.0 % Monocytes (%) (Auto) 6.1 0.0-12.0 % Eosinophils (%) (Auto) 0.1 0.0-7.0 % Basophils (%) (Auto) 0.3 0.0-2.0 % Neutrophils # (Auto) 18.4 H 1.6-8.6 10 ^3/uL Lymphocytes # (Auto) 0.5 0.4-5.4 10 ^3/uL Monocytes # (Auto) 1.2 0-1.3 10 ^3/uL Eosinophils # (Auto) 0 0-0.8 10 ^3/uL Basophils # (Auto) 0.1 0-0.2 10 ^3/uL Nucleated Red Blood Cells 0.0 % Sodium Level 131 #L 136-145 mmol/L Potassium Level 4.6 3.5-5.1 mmol/L Chloride Level 98 98-107 mmol/L Carbon Dioxide Level 23 20-31 mmol/L Anion Gap 10 5-15 Blood Urea Nitrogen 35 H 9-23 mg/dL Creatinine 2.97 #H 0.550-1.02 mg/dL Glomerular Filtration Rate Calc 16 >90 mL/min BUN/Creatinine Ratio 11.8 10.0-20.0 Serum Glucose 122 H 74-106 mg/dL Calcium Level 9.4 8.7-10.4 mg/dL Urine Color Light-orange Yellow Urine Clarity Turbid H Clear Urine pH 6.5 5.0-9.0 Urine Specific [place] 1.017 1.001-1.035 Urine Protein 3+ H Negative Urine Ketones Negative Negative Urine Blood 3+ H Negative /uL Urine Nitrite Negative Negative Urine Bilirubin Negative Negative Urine Urobilinogen Normal Negative mg/dL Urine Leukocyte Esterase 2+ Negative /uL Urine RBC 616 0 - 4 /hpf Urine Microscopic WBC 159 H 0-5 /HPF Urine Squamous Epithelial Cells Few <5 /hpf Urine Bacteria Few H None Seen /hpf Urine Mucus Few None Seen Urine Yeast (Budding) Occasional None Seen /hpf Urine Creatinine 98.07 30.0-125.0 mg/dL Urine Protein/Creatinine Ratio 8.40 Urine Sodium 55 40-220 mmol/L Urine Glucose 1+ H Normal mg/dL Urine Total Protein 824.0 H 1-14 mg/dL Vitamin D 25-Hydroxy 19.2 L 30.0-100 ng/mL Phosphorus Level 3.9 2.4-5.1 mg/dL Magnesium Level 2.1 1.6-2.6 mg/dL Parathyroid Hormone (Intact) 27.6 18.4-80.1 pg/mL Hepatitis B Surface Antigen Negative Negative Hepatitis C Antibody Negative Negative Test 07/05/24 15:37 07/05/24 10:20 Range/Units Total Bilirubin 0.4 0.2-1.0 mg/dL Aspartate Amino Transferase (AST) 127 H 13-40 U/L Alanine Aminotransferase (ALT) 14 7-40 U/L Alkaline Phosphatase 69 46-116 U/L Lactate Dehydrogenase 3084 H 120-246 U/L Total Protein 7.3 5.7-8.2 g/dL Albumin 4.2 3.2-4.8 g/dL Carcinoembryonic Antigen 1.16 <=5.0 ng/mL CA 125 Antigen 112.0 H 0.0-38.1 U/mL Thyroid Stimulating Hormone (TSH) 2.79 0.55-4.78 uIU/mL POC Glucose 151 H 70-106 mg/dl Primary Diagnosis Leukocytosis pelvic abdominal mass, renal compromise perhaps secondary to mass effect on the ureters Plan discussed with: Patient (Plan will be to vaginal ultrasound CA 125 elevated 112 CEA; recommend higher level care; as a outpatient referral to at [facility] radio sportscaster Oncology , [facility] radio sportscaster Oncology, [facility] radio sportscaster Oncology were [facility] radio sportscaster Oncology. highly suspicious for uterine or ovarian malignancy) PRAVEEN DO DO Jul 07, 2024 08:44
--- NOTE | 2024-07-07 11:55 | DVHPN2 ---
Progress Note Date Seen: Jul 07, 2024 Medical Necessity Reason Pt with a Central, PICC or Fol: No Subjective Patient reports: No new complaints Other Systems: Patient seen and examined by myself today in follow-up Objective vital signs Vital Sign Date Time Temp Pulse Resp B/P (MAP) Pulse Ox O2 Delivery O2 Flow Rate FiO2 07/07/24 09:36 20 164/82 07/07/24 09:36 20 07/07/24 08:47 98.4 92 98.4 07/07/24 08:00 Room Air* 0 21 Total Intake and Output 07/06/24 07/06/24 07/07/24 15:00 23:00 07:00 Intake Total 230 ml 1110 ml 550 ml Output Total 250 ml 200 ml Balance 230 ml 860 ml 350 ml medications Current Medications Medications Dose Ordered Sig/Matt Route Start Time Stop Time Status Last Admin Dose Admin Nitroglycerin 0.4 mg Q5MINP PRN SL 07/05/24 14:45 Morphine Sulfate 2 mg Q30M PRN IV 07/05/24 14:45 07/05/24 21:52 Morphine Sulfate 1 mg Q4HPRN PRN IV 07/05/24 14:45 07/07/24 09:36 Acetaminophen/ Hydrocodone Bitart 1 tab Q6HPRN PRN PO 07/05/24 14:45 07/07/24 04:14 Acetaminophen 500 mg Q8HP PRN PO 07/05/24 14:45 Ondansetron HCl 4 mg Q6HP PRN IV 07/05/24 14:45 07/05/24 16:01 Docusate Sodium 100 mg BID PO 07/05/24 22:00 07/06/24 21:55 Metoprolol Tartrate 25 mg BID PO 07/05/24 22:00 07/07/24 09:36 Ceftriaxone Sodium 50 ml @ 100 mls/hr DAILY@09 IV 07/06/24 16:00 07/07/24 09:34 Metronidazole 100 ml @ 100 mls/hr Q8HR IV 07/06/24 22:00 07/07/24 05:25 Examination: LUNGS:Normal, CVS:Normal, MSK:Normal laboratory and microbiology Laboratory Tests 07/07/24 07:26 Test 07/07/24 07:26 Range/Units Serum Glucose 122 H 74-106 mg/dL Problem List/Assessment/Plan Problem List/Assessment/Plan Acute kidney injury superimposed Chronic Kidney Disease secondary hemodynamic mediated, urinary obstruction Urinary retention Bilateral hydronephrosis Acute cystitis Ovarian cancer Constipation Hypertensin Vitamin-D deficiency Recommendations Kidney function slightly worsened today Increased urine output Leiva catheter Strict I&O I agree with IV fluid hydration Ergocalciferol 68612 units p.o. q.week BP control Laxatives IV antibiotics Patient Scheduling Coordinator consult We will continue to follow Plan discussed with: Patient My Orders My Orders Orders - GLENN VIDAL MD Procedure Category Date Status Time Kidney US 07/06/24 Resulted 18:19 Insert Leiva Catheter [facility] 07/06/24 In Process 18:20 GLENN VIDAL MD Jul 07, 2024 11:55
[2024-07-07] MEDS: ERGOCALCIFEROL 50,000 UNIT(1.25MG) CAP PO SCH (15:34)
--- NOTE | 2024-07-07 16:12 | DVHPN2 ---
Subjective Patient denies any symptoms. Reviewed: Care Plan, H&P, Labs, Medications, Previous Orders, Radiology Changes from previous H/P or p: No Changes General: Per HPI Eyes: No Pain, No Vision change, No Conjunctivae inflammation, No Eyelid inflammation, No Other, No Redness ENT: No Ear pain, No Ear discharge, No Nose pain, No Nose discharge, No Nose congestion, No Mouth pain, No Mouth swelling, No Throat pain, No Throat swelling, No Other Cardiovascular: No Chest Pain, No Palpitations, No Orthopnea, No Paroxysmal Noc. Dyspnea, No Edema, No Lt Headedness, No Other Respiratory: No Cough, No Dry, No Shortness of breath, No SOB with excertion, No Wheezing, No Hemoptysis, No Pleuritic Pain, No Sputum, No Other Gastrointestinal: Abdominal Pain, Constipation Genitourinary: No Dysuria, No Frequency, No Incontinence, No Hematuria, No Retention, No Other Musculoskeletal: No other, No neck pain, No shoulder pain, No arm pain, No back pain, No hand pain, No leg pain, No foot pain Skin: No Rash, No Lesions, No Jaundice, No Bruising, No Other Objective Vitals Vital Signs Date Time Temp Pulse Resp B/P (MAP) Pulse Ox O2 Delivery O2 Flow Rate FiO2 07/07/24 15:17 100 20 151/87 07/07/24 13:05 97.9 92 97.9 07/07/24 08:00 Room Air* 0 21 Intake/Output Intake and Output 07/07/24 07:00 Intake Total 1890 ml Output Total 450 ml Balance 1440 ml Intake Oral 1740 ml IV Total 150 ml Output Urine Total 450 ml General Appearance: Alert, Oriented X3, Cooperative, No acute distress HEENT: Atraumatic, PERRLA Cardiovascular: Normal S1, Normal S2 Abdomen: Normal bowel sounds, Soft, No tenderness, No hepatospenomegaly, Other (Pelvic mass) Rectal: Deferred Musculoskeletal: Normal sensory function, Normal motor function Skin: Dry, Intact, Warm Psych/Mental Status: Mental status NL, Mood NL Medications Current Medications Medications Dose Ordered Sig/Matt Route Start Time Stop Time Status Last Admin Dose Admin Nitroglycerin 0.4 mg Q5MINP PRN SL 07/05/24 14:45 Morphine Sulfate 2 mg Q30M PRN IV 07/05/24 14:45 07/05/24 21:52 2 MG Morphine Sulfate 1 mg Q4HPRN PRN IV 07/05/24 14:45 07/07/24 15:17 1 MG Acetaminophen/ Hydrocodone Bitart 1 tab Q6HPRN PRN PO 07/05/24 14:45 07/07/24 04:14 1 TAB Acetaminophen 500 mg Q8HP PRN PO 07/05/24 14:45 Ondansetron HCl 4 mg Q6HP PRN IV 07/05/24 14:45 07/05/24 16:01 4 MG Docusate Sodium 100 mg BID PO 07/05/24 22:00 07/06/24 21:55 100 MG Metoprolol Tartrate 25 mg BID PO 07/05/24 22:00 07/07/24 09:36 25 MG Ergocalciferol 50,000 unit Q7D PO 07/07/24 12:00 07/07/24 15:34 50,000 UNIT Meropenem 50 ml @ 17 mls/hr Q12HR IV 07/07/24 22:00 UNV Laboratory Results Laboratory Tests 07/07/24 07:26 Chemistry Test 07/07/24 07:26 Calcium Level 9.4 mg/dL (8.7-10.4) Urinalysis Test 07/07/24 04:52 Urine Color Light-orange (Yellow) Urine Clarity Turbid (Clear) H Urine pH 6.5 (5.0-9.0) Urine Specific [place] 1.017 (1.001-1.035) Urine Protein 3+ (Negative) H Urine Ketones Negative (Negative) Urine Blood 3+ /uL (Negative) H Urine Nitrite Negative (Negative) Urine Bilirubin Negative (Negative) Urine Urobilinogen Normal mg/dL (Negative) Urine Leukocyte Esterase 2+ /uL (Negative) Urine RBC 616 /hpf (0 - 4) Urine Microscopic WBC 159 /HPF (0-5) H Urine Squamous Epithelial Cells Few /hpf (<5) Urine Bacteria Few /hpf (None Seen) H Urine Mucus Few (None Seen) Urine Yeast (Budding) Occasional /hpf (None Urine Creatinine 98.07 mg/dL (30.0-125.0) Urine Protein/Creatinine Ratio 8.40 Urine Sodium 55 mmol/L (40-220) Urine Glucose 1+ mg/dL (Normal) H Urine Total Protein 824.0 mg/dL (1-14) H Labs and/or images reviewed: Labs reviewed by me, Image(s) reviewed by me Assessment/Plan Assessment/Plan Impression: -large abdominal mass , rule out uterine cancer -constipation -accelerated hypertension -urinary retention -acute hypoxic respiratory failure Plan: -events: Worsening renal function. Now with hypoxia -chest x-ray -change antibiotic therapy to meropenem -nephrology consultation -MRI of the abdomen and pelvis : Reviewed -stool softeners -CEA, CA 125 -antihypertensives -continue with Leiva catheter -repeat labs in a.m. -social service consultation for transfer to higher level of care. Total time spent with patient discussing and formulating plan of care: 35 minutes. This medical document was created using an electronic medical record system with [employer] dictation system. Although this document has been carefully reviewed, there may still be some phonetic and typographical errors. These areas are purely typographical due to imperfections of the software programs, and do not reflect any compromise in the patient's medical care. Plan discussed with: Patient, Daughter, Other (RN) My Orders Orders - ABRAM JORDAN NP Procedure Category Date Status Time Basic Metabolic Panel LAB 07/08/24 Verified 05:00 Basic Metabolic Panel LAB 07/09/24 Verified 05:00 Basic Metabolic Panel LAB 07/10/24 Verified 05:00 Meropenem 500mg Ivpb PHA 07/07/24 Logged (Merrem 500mg/Ns) 22:00 Complete Blood Count LAB 07/08/24 Verified 04:00 Date of Service: Jul 07, 2024 Billing Provider: ABRAM JORDAN NP Common Visit Codes: [id number] INP/OBS CARE(HIGH) ABRAM JORDAN NP Jul 07, 2024 16:12
[2024-07-07] MEDS: ENOXAPARIN SOD 30 MG/0.3 ML SYRINGE SC ONE (18:39)
--- NOTE | 2024-07-07 19:17 | DVH ---
CHEST RADIOGRAPH Indication: hypoxia Technique: Single frontal view of the chest was obtained COMPARISON: None FINDINGS: Lines and Tubes: None Lungs: Clear Pleura: No effusion. No pneumothorax. Cardiomediastinal contours: Unremarkable IMPRESSION: No active disease.
[2024-07-07] MEDS: MEROPENEM 500MG IVPB 50 ML IV SCH (21:29)
[2024-07-08] VITALS (9 sets, daily range): BP systolic 118–153; BP diastolic 65–82; PULSE 86–116; RESP 16–18; TEMP 36.8; O2SAT 93–100
[2024-07-08] MEDS: DOCUSATE SOD 100 MG CAP PO ONE (03:35)
[2024-07-08 06:28] LABS: Basophils # (auto) 0 10 ^3/uL (0-0.2); Basophils % (auto) 0.1 % (0.0-2.0); Eosinophils # (auto) 0 10 ^3/uL (0-0.8); Eosinophils % (auto) 0.2 % (0.0-7.0); Hematocrit 37.3 % (36.0-46.0); Hemoglobin 12.4 g/dL (12.2-16.2); Lymphocytes # (auto) 0.4 10 ^3/uL (0.4-5.4); Lymphocytes % (auto) 2.2 % (10.0-50.0); Mean Corpuscular Hemoglobin 31.5 pg (28.0-32.0); Mean Corpuscular Hgb Conc. 33.2 g/dL (32.0-36.0); Mean Corpuscular Volume 94.9 fL (80.0-100.0); Monocytes # (auto) 1.5 10 ^3/uL (0-1.3); Monocytes % (auto) 7.9 % (0.0-12.0); Neutrophils # (auto) 16.6 10 ^3/uL (1.6-8.6); Neutrophils % (auto) 89.6 % (37.0-80.0); Platelet Count (auto) 249 10^3/uL (140-450); Red Blood Cells 3.93 10^6/uL (4.0-5.20); Red Cell Distribution Width 13.4 % (11.8-14.3); White Blood Cell 18.6 10^3/uL (4.4-10.8)
[2024-07-08 06:31] LABS: Anion Gap 11 (5-15); Carbon Dioxide 24 mmol/L (20-31)
[2024-07-08 06:32] LABS: Calcium 9.6 mg/dL (8.7-10.4)
[2024-07-08 06:37] LABS: BUN/Creatinine Ratio 11.4 (10.0-20.0)
[2024-07-08 07:07] LABS: Blood Urea Nitrogen 45 mg/dL (9-23); Chloride 95 mmol/L (98-107); Glucose 138 mg/dL (74-106); Potassium 5.5 mmol/L (3.5-5.1); Sodium 130 mmol/L (136-145)
[2024-07-08] MEDS: ALBUTEROL SULF 2.5 MG/0.5ML(0.5%) NEB SOLN NEB ONE (10:05)
[2024-07-08] MEDS: SODIUM ZIRCONIUM CYCL 10 GM PAK PO ONE (10:54)
[2024-07-08] MEDS: SODIUM BICARB 8.4% 50Meq/50ml SYR Vial IV ONE (10:54)
[2024-07-08] MEDS: ENOXAPARIN SOD 30 MG/0.3 ML SYRINGE SC SCH (10:56)
--- NOTE | 2024-07-08 11:29 | DVH ---
EXAM: US Pelvis Transabdominal, Complete CLINICAL INDICATION: pelvic mass TECHNIQUE: Real-time complete transabdominal pelvic ultrasound with image documentation. COMPARISON: MRI PELVIS WO CONTRAST on DOS: 07/06/24 FINDINGS: UTERUS/CERVIX: Uterus is enlarged and lobulated measuring 15.6 x 10.8 x 12.3 cm. Endometrium is no t clearly visualized and positive containing a polyp measuring up to 2.5 cm. No myometrial mass. RIGHT OVARY: Right ovary not visualized. LEFT OVARY: Unremarkable. Normal blood flow. The left ovary measures 2.7 x 2.3 x 2.4 cm. FREE FLUID: No free fluid. BLADDER: Unremarkable as visualized. Wall is normal thickness for degree of distention. OTHER FINDINGS: Multiple heterogeneous lesion in the fundus measuring up to 4.2 cm. . . IMPRESSION: 1. Multiple heterogeneous lesion in the fundus measuring up to 4.2 cm. 2. Endometrium is not clearly visualized and positive containing a polyp measuring up to 2.5 cm. 3. These findings are suspicious for neoplastic process. These are better demonstrated on MRI pelvis dated 07/06/2024.
[2024-07-08] MEDS: FUROSEMIDE 40 MG/4 ML VIAL IV ONE (11:40)
--- NOTE | 2024-07-08 12:02 | DVH ---
US BiLat Lower DVT HISTORY: rule out PE COMPARISON: None TECHNIQUE: Duplex doppler evaluation of the deep venous system of the lower extremity from the common femoral veins, superficial femoral vein, great saphenous vein, deep femoral vein, popliteal vein, an d calf veins, including color doppler and spectral/pulsed waveform analysis, was performed. FINDINGS: Right: - Common femoral vein: Compressible - Deep femoral vein: Compressible - Femoral vein: Compressible - Popliteal vein: Compressible - Posterior tibial vein: Waveforms present - Peroneal vein: Waveforms present - Other: Nothing Left: - Common femoral vein: Compressible - Deep femoral vein: Compressible - Femoral vein: Not Compressible - Popliteal vein: Not Compressible - Posterior tibial vein: Not Waveforms present - Other: Nothing IMPRESSION: Left lower extremity deep venous thrombosis of the femoral-popliteal vein. Critical Result: DVT Findings discussed with amelia giraldo communicated by marsha russo in the prelim thank you at 07/08/2024 11:59 AM and acknowledged receipt and understanding of the findings.
[2024-07-08] MEDS ORDERED: METOPROLOL TARTRATE 25 MG TAB PO SCH (12:45)
--- NOTE | 2024-07-08 13:13 | DVHPN2 ---
Progress Note Date Seen: Jul 08, 2024 Medical Necessity Reason Pt with a Central, PICC or Fol: No Subjective Other Systems: Patient seen and examined by myself today in follow-up Objective vital signs Vital Sign Date Time Temp Pulse Resp B/P (MAP) Pulse Ox O2 Delivery O2 Flow Rate FiO2 07/08/24 13:08 116 18 118/65 07/08/24 10:15 100 07/08/24 10:05 Nasal Cannula* 2 28 07/08/24 09:21 98.1 98.1 Total Intake and Output 07/07/24 07/07/24 07/08/24 15:00 23:00 07:00 Intake Total 230 ml 350 ml 50 ml Output Total 50 ml 50 ml Balance 230 ml 300 ml 0 ml medications Current Medications Medications Dose Ordered Sig/Matt Route Start Time Stop Time Status Last Admin Dose Admin Nitroglycerin 0.4 mg Q5MINP PRN SL 07/05/24 14:45 Morphine Sulfate 2 mg Q30M PRN IV 07/05/24 14:45 07/08/24 13:08 2 MG Morphine Sulfate 1 mg Q4HPRN PRN IV 07/05/24 14:45 07/07/24 21:29 1 MG Acetaminophen/ Hydrocodone Bitart 1 tab Q6HPRN PRN PO 07/05/24 14:45 07/07/24 04:14 1 TAB Acetaminophen 500 mg Q8HP PRN PO 07/05/24 14:45 Ondansetron HCl 4 mg Q6HP PRN IV 07/05/24 14:45 07/05/24 16:01 4 MG Docusate Sodium 100 mg BID PO 07/05/24 22:00 07/07/24 21:28 100 MG Metoprolol Tartrate 25 mg BID PO 07/05/24 22:00 07/08/24 10:55 25 MG Ergocalciferol 50,000 unit Q7D PO 07/07/24 12:00 07/07/24 15:34 50,000 UNIT Meropenem 50 ml @ 17 mls/hr Q12HR IV 07/07/24 22:00 07/08/24 10:55 17 MLS/HR Furosemide 40 mg DAILY IV 07/09/24 10:00 Enoxaparin Sodium 50 mg DAILY SC 07/09/24 10:00 Examination: LUNGS:Normal, CVS:Normal, MSK:Normal laboratory and microbiology Laboratory Tests 07/08/24 05:35 Test 07/08/24 05:35 Range/Units Serum Glucose 138 H 74-106 mg/dL Microbiology Date/Time Source Procedure Growth Status 07/06/24 16:36 Blood Blood Culture - Preliminary NO GROWTH AFTER 24 HOURS OF INCUBATION. Resulted Problem List/Assessment/Plan Problem List/Assessment/Plan Acute kidney injury superimposed Chronic Kidney Disease secondary hemodynamic mediated, urinary obstruction Urinary retention Bilateral hydronephrosis Acute cystitis Ovarian cancer Constipation Hypertensin Vitamin-D deficiency Hyperkalemia Recommendations Kidney function continue to worsened Recommend bilateral nephrostomy tube Leiva catheter Strict I&O I agree with IV fluid hydration Ergocalciferol 33351 units p.o. q.week BP control Laxatives Renal diet Lokelma 10 g p.o. IV antibiotics Patient Support Assistant consult We will continue to follow Plan discussed with: Patient My Orders My Orders Orders - GLENN VIDAL MD Procedure Category Date Status Time Furosemide Injection PHA 07/09/24 In Process (Lasix Injection) 10:00 Renal DIET 07/08/24 Transmitted Standard(2gna,3gk,Lopho) Lunch GLENN VIDAL MD Jul 08, 2024 13:13
[2024-07-08] MEDS: ENOXAPARIN SOD 30 MG/0.3 ML SYRINGE SC ONE (13:56)
--- NOTE | 2024-07-08 14:01 | DVHDS2 ---
Discharge Summary Date of Admission Jul 05, 2024 at 14:45 Date of Discharge: Jul 08, 2024 Admitting Diagnosis Abdominal mass Labs/Diagnostic Data: Laboratory Results Test 07/08/24 05:35 07/07/24 04:52 07/06/24 19:07 07/06/24 07:15 White Blood Count 18.6 10^3/uL (4.4-10.8) Red Blood Count 3.93 10^6/uL (4.0-5.20) Hemoglobin 12.4 g/dL (12.2-16.2) Hematocrit 37.3 % (36.0-46.0) Mean Corpuscular Volume 94.9 fL (80.0-100.0) Mean Corpuscular Hemoglobin 31.5 pg (28.0-32.0) Mean Corpuscular Hemoglobin Concent 33.2 g/dL (32.0-36.0) Red Cell Distribution Width 13.4 % (11.8-14.3) Platelet Count 249 10^3/uL (140-450) Mean Platelet Volume 7.1 fL (6.9-10.8) Neutrophils (%) (Auto) 89.6 % (37.0-80.0) Lymphocytes (%) (Auto) 2.2 % (10.0-50.0) Monocytes (%) (Auto) 7.9 % (0.0-12.0) Eosinophils (%) (Auto) 0.2 % (0.0-7.0) Basophils (%) (Auto) 0.1 % (0.0-2.0) Neutrophils # (Auto) 16.6 10 ^3/uL (1.6-8.6) Lymphocytes # (Auto) 0.4 10 ^3/uL (0.4-5.4) Monocytes # (Auto) 1.5 10 ^3/uL (0-1.3) Eosinophils # (Auto) 0 10 ^3/uL (0-0.8) Basophils # (Auto) 0 10 ^3/uL (0-0.2) Nucleated Red Blood Cells 0.0 % D-Dimer, Quantitative 22.25 mg/L FEU (0.0-0.49) Sodium Level 130 mmol/L (136-145) Potassium Level 5.5 mmol/L (3.5-5.1) Chloride Level 95 mmol/L (98-107) Carbon Dioxide Level 24 mmol/L (20-31) Anion Gap 11 (5-15) Blood Urea Nitrogen 45 mg/dL (9-23) Creatinine 3.94 mg/dL (0.550-1.02) Glomerular Filtration Rate Calc 12 mL/min (>90) BUN/Creatinine Ratio 11.4 (10.0-20.0) Serum Glucose 138 mg/dL (74-106) Calcium Level 9.6 mg/dL (8.7-10.4) Urine Color Light-orange (Yellow) Urine Clarity Turbid (Clear) Urine pH 6.5 (5.0-9.0) Urine Specific [place] 1.017 (1.001-1.035) Urine Protein 3+ (Negative) Urine Ketones Negative (Negative) Urine Blood 3+ /uL (Negative) Urine Nitrite Negative (Negative) Urine Bilirubin Negative (Negative) Urine Urobilinogen Normal mg/dL (Negative) Urine Leukocyte Esterase 2+ /uL (Negative) Urine RBC 616 /hpf (0 - 4) Urine Microscopic WBC 159 /HPF (0-5) Urine Squamous Epithelial Cells Few /hpf (<5) Urine Bacteria Few /hpf (None Seen) Urine Mucus Few (None Seen) Urine Yeast (Budding) Occasional /hpf (None Urine Creatinine 98.07 mg/dL (30.0-125.0) Urine Protein/Creatinine Ratio 8.40 Urine Sodium 55 mmol/L (40-220) Urine Glucose 1+ mg/dL (Normal) Urine Total Protein 824.0 mg/dL (1-14) Vitamin D 25-Hydroxy 19.2 ng/mL (30.0-100) Phosphorus Level 3.9 mg/dL (2.4-5.1) Magnesium Level 2.1 mg/dL (1.6-2.6) Parathyroid Hormone (Intact) 27.6 pg/mL (18.4-80.1) Hepatitis B Surface Antigen Negative (Negative) Hepatitis C Antibody Negative (Negative) Test 07/05/24 15:37 07/05/24 10:20 Total Bilirubin 0.4 mg/dL (0.2-1.0) Aspartate Amino Transferase (AST) 127 U/L (13-40) Alanine Aminotransferase (ALT) 14 U/L (7-40) Alkaline Phosphatase 69 U/L (46-116) Lactate Dehydrogenase 3084 U/L (120-246) Total Protein 7.3 g/dL (5.7-8.2) Albumin 4.2 g/dL (3.2-4.8) Thyroid Stimulating Hormone (TSH) 2.79 uIU/mL (0.55-4.78) POC Glucose 151 mg/dl (70-106) Other Laboratory Tests 07/08/24 05:35 Brief Hx & Hospital Course: History of Present Illness Patient was a 74-year-old female presenting to the emergency room with constipation in abdominal distention. Patient denies having any medical history. She reports that her abdominal distention has been getting worse with the past several days. The patient also reports having constipation. She denies having any loss of weight. Patient has CT scan of the abdomen and pelvis which shows a large cystic lesion anterior abdomen. Patient was Leiva catheter placed with some resolution of the patient's abdominal distention with 1600 mL removed. Imaging and radiology findings were discussed with the patient and granddaughter who was bedside. They were informed that given this type of mass, it was highly likely that the patient will need to be seen by specialist, gynecological oncologist, which was not available at this hospital or within the local hospitals. At this time she was requesting to be admitted to this hospital for further diagnostic testing. The current time she states that she has not seen a doctor three years, and is currently on no prescribed medications. Course of hospitalization: Patient had MRI of the pelvis with the current findings: PATIENT: TAYLER SAMAYOA ACCT: [id number] UNIT: [id number] : 1950 LOC: [facility] ROOM / BED: [facility] / B AGE / SEX: 74 / F ADM STATUS: ADM IN SERVICE 0825 ORDERING PHYSICIAN: PRAVEEN DO DO PROCEDURE(s): PELUS - PELVIC REASON: pelvic mass ORDER NUMBER(s): [id number], ACCESSION NUMBER(s): [id number] EXAM: US Pelvis Transabdominal, Complete CLINICAL INDICATION: pelvic mass TECHNIQUE: Real-time complete transabdominal pelvic ultrasound with image documentation. COMPARISON: MRI PELVIS WO CONTRAST on DOS: 07/06/24 FINDINGS: UTERUS/CERVIX: Uterus is enlarged and lobulated measuring 15.6 x 10.8 x 12.3 cm. Endometrium is not clearly visualized and positive containing a polyp measuring up to 2.5 cm. No myometrial mass. RIGHT OVARY: Right ovary not visualized. LEFT OVARY: Unremarkable. Normal blood flow. The left ovary measures 2.7 x 2.3 x 2.4 cm. FREE FLUID: No free fluid. BLADDER: Unremarkable as visualized. Wall is normal thickness for degree of distention. OTHER FINDINGS: Multiple heterogeneous lesion in the fundus measuring up to 4.2 cm. . . IMPRESSION: 1. Multiple heterogeneous lesion in the fundus measuring up to 4.2 cm. 2. Endometrium is not clearly visualized and positive containing a polyp measuring up to 2.5 cm. 3. These findings are suspicious for neoplastic process. These are better demonstrated on MRI pelvis dated 07/06/2024. ATED BY: AMBERLY GAINES MD DICTATED DATE/TIME: 07/08/241126 SIGNED BY: AMBERLY GAINES MD SIGNED DATE/TIME: 07/08/241126 CC: CA 125 elevated at 112. Consultation was placed with gynecology who also recommends the patient be transferred for Gyne Onc services. Pelvic ultrasound was performed with similar findings coinciding with MRI of the pelvis. While in the hospital the patient required O2 supplementation after being admitted. D- dimer was found to be elevated. V/Q scan is currently pending. Unable to do CT scan given patient has worsening renal function secondary to obstructive uropathy. Nephrology consultation was placed. Recommendations for nephrostomy tubes were noted. Patient had DVT study of bilateral lower extremities with DVT positive to the left fem-pop area. Patient was placed on therapeutic dose Lovenox. Report was given to Gyne Onc services at [facility], Dr. Dunn who has accepted the patient. This was informed to the patient was agreeable with the transfer. Physical examination General: Alert and Oriented x3. No acute distress. Well-nourished. Eyes: EOMI. Anicteric. HENT: Moist mucous membranes. Lungs: Clear to auscultation bilaterally. No accessory muscle use. Cardiovascular: Regular rate and rhythm. No murmur. No JVD. Abdomen: Soft, non-tender and non-distended. No palpable masses. Extremities: No edema. Non-tender. Skin: No rashes or lesions. Warm. Neurologic: No focal neurological deficits. CN II-XII grossly intact, but not individually tested. Psychiatric: Cooperative. Appropriate mood and affect. Total time spent with patient discussing and formulating plan of care: 35 minutes. This medical document was created using an electronic medical record system with [employer] system. Although this document has been carefully reviewed, there may still be some phonetic and typographical errors. These areas are purely typographical due to imperfections of the software programs, and do not reflect any compromise in the patient's medical care. 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 Patient was counseled about treatment plan, medications, possible side effects, patientverbalized understanding. All questions were answered to the best of my ability. 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
[2024-07-08] MEDS: SODIUM CHLORIDE 0.9% 1,000 ML IV SCH (14:12)
[2024-07-09] MEDS ORDERED: ENOXAPARIN SOD 100 MG/1 ML SYRINGE SC SCH (10:00)
[2024-07-09] MEDS ORDERED: FUROSEMIDE 40 MG/4 ML VIAL IV SCH (10:00)
[2024-07-09] MEDS ORDERED: ENOXAPARIN SOD 60 MG/0.6 ML SYRINGE SC SCH (10:00)
== END 2024-07-08 19:30 | disposition short-term general hospital (02) | DRG 871 ==
LOC: ER 10:17 → OVERFLOW 14:45 → WEST WING 22:28 → TELE-WESTW 07-08 09:15
PROVIDERS: ADMIT Nurse Practitioner Acute Care; ATTEND Nurse Practitioner Acute Care
DX: A41.9 Sepsis, unspecified organism (principal); J96.01 Acute respiratory failure with hypoxia; N17.0 Acute kidney failure with tubular necrosis; C56.9 Malignant neoplasm of unspecified ovary; I82.402 Acute embolism and thrombosis of unspecified deep veins of left lower extremity; N13.6 Pyonephrosis; Z68.1 Body mass index [BMI] 19.9 or less, adult; N30.01 Acute cystitis with hematuria; E86.0 Dehydration; C55 Malignant neoplasm of uterus, part unspecified; K59.00 Constipation, unspecified; E55.9 Vitamin D deficiency, unspecified; E87.5 Hyperkalemia; R33.9 Retention of urine, unspecified; K43.9 Ventral hernia without obstruction or gangrene; R63.6 Underweight; N18.9 Chronic kidney disease, unspecified; I12.9 Hypertensive chronic kidney disease with stage 1 through stage 4 chronic kidney disease, or unspecified chronic kidney disease; E11.22 Type 2 diabetes mellitus with diabetic chronic kidney disease; E11.65 Type 2 diabetes mellitus with hyperglycemia; Z80.3 Family history of malignant neoplasm of breast; Z82.5 Family history of asthma and other chronic lower respiratory diseases; Z80.1 Family history of malignant neoplasm of trachea, bronchus and lung
CPT/HCPCS: 36415; 71045; 72195; 74176; 76775; 76856; 80048; 80053; 81001; 82306; 82378; 82570; 82962; 83615; 83735; 83970; 84100; 84132; 84156; 84300; 84443; 85025; 85379; 86304; 86803; 87040; 87086; 87340; 93005; 93970; 94640; 96365; 96375; G0378; J2185; J2405; J3490